=== PATIENT | male | born 1980 | race African-American/Black ===

== ENCOUNTER 2024-03-02 22:34 | Emergency (ER) | payer OTHER ==
[2024-03-02 23:32] LABS: Alcohol 288.2 mg/dL (Less than 10); Anion Gap 16 mmol/L (10-20); BUN (Urea Nitrogen) 10 mg/dL (8.9-20.6); Calc. Creatinine Clearance 0 mL/min (70-130); Calcium 8.9 mg/dL (7.8-10.44); Carbon Dioxide 23 mmol/L (22-29); Chloride 103 mmol/L (98-107); Estimated GFR 90; Glucose 181 mg/dL (70-105); Potassium 3.7 mmol/L (3.5-5.1); Sodium 138 mmol/L (136-145)
== END 2024-03-02 23:56 | disposition home or self-care (01) ==
LOC: CSHERS 22:34
DX: F10.129 Alcohol abuse with intoxication, unspecified (principal); I10 Essential (primary) hypertension; E03.9 Hypothyroidism, unspecified; Z79.899 Other long term (current) drug therapy; Z79.890 Hormone replacement therapy; Y90.8 Blood alcohol level of 240 mg/100 ml or more
CPT/HCPCS: 36415; 80048; 80307; 99284